=== PATIENT | male | born 1950 ===

== ENCOUNTER 2022-10-12 05:48 | Day surgery (SDC) | payer OTHER ==
[~2022-10-12] VITALS: Ht 172.7 cm; Wt 105.7 kg
[~2022-10-12 05:48] MED LIST: AMLODIPINE BESYL5 MG PO; ATORVASTATIN CA40 MG PO; BACLOFEN20 MG PO; CARVEDILOL12.5 M1 PO; DULOXETINE HCL60 MG PO; FAXIGA PO; FENOFIB PO; FOLIC A PO; GLUMETZA1000 MG PO; GLYCOTROL CAPS1 EACH PO; GORDON'S VITE A75 GM PO; LANTUS; LATANOPROST2.5 ML OP; LOSARTAN-HCTZ1 EAC1 PO; LYRICA225 MG PO; PEPCID AC20 MG PO; PROTONIX40 MG PO; SYNTHROID88 MCG PO; TRULIC
== END 2022-10-12 16:50 | disposition home or self-care (01) ==
LOC: CIR.AMB 05:48
PROVIDERS: ATTEND Orthopaedic Surgery Hand Surgery
DX: S69.82XA Other specified injuries of left wrist, hand and finger(s), initial encounter (principal); L98.8 Other specified disorders of the skin and subcutaneous tissue; I10 Essential (primary) hypertension; Z20.822 Contact with and (suspected) exposure to COVID-19; E11.9 Type 2 diabetes mellitus without complications; E78.00 Pure hypercholesterolemia, unspecified; E78.3 Hyperchylomicronemia